=== PATIENT | female | born 1995 | race Asian ===

== ENCOUNTER 2016-03-15 00:06 | Emergency (ER) | payer OTHER ==
[~2016-03-15] VITALS: Ht 162.6 cm; Wt 47.6 kg
[2016-03-15 00:14] VITALS: Ht 162.6 cm; Wt 47.6 kg
--- NOTE | 2016-03-15 00:51 | EMERGENCY ROOM VISIT NOTE ---
History Report prepared by Jessie: Audrey Manriquez Under the Supervision of: Dr. Kodak Rodriguez M.D. First contact with patient: 00:41 Chief Complaint: FEVER Stated Complaint: FEVER History of Present Illness The patient is a 20 year old female who presents to the Emergency Room with complaints of a resolved fever that began around 1999 this evening. She currently rates her discomfort as a 2/10 in severity. The patient states that she took some medication prior to arrival, which alleviated her symptoms. She additionally notes dizziness, intermittent chest pain, headache, and burning with urination today. The patient denies any cough, sore throat, runny nose, ear pain, abdominal pain, back pain, hematuria, diarrhea, swelling in her lower extremities, or chance of . She denies any sick contacts. The patient denies getting a flu shot this year. Source of History: patient Onset: 1999 this evening Position: other (global) Symptom Intensity: 2/10 Quality: other (fever) Timing: resolved Associated Symptoms: + chest pain, + headache, + urinary symptoms (burning with urinatino), No abdominal pain, No back pain, No cough, No diarrhea, No sorethroat Note: Associated Symptoms: dizziness Review of Systems See HPI for pertinent positives & negatives. A total of 10 systems reviewed and were otherwise negative. Past Medical & Surgical Medical Problems: (1) No pertinent past medical history Surgical Problems: (1) No pertinent past surgical history Family History No pertinent family history Social History Smoking Status: Never Smoker Smokeless Tobacco Use: No Alcohol Use: none Marital Status: single Occupation Status: unemployed Allergies Coded Allergies: No Known Allergies (Unverified , 03/15/16) Physical Exam Vital Signs Date Time Temp Pulse Resp B/P Pulse Ox O2 Delivery O2 Flow Rate FiO2 03/15/16 01:45 36.7 74 18 101/59 96 03/15/16 00:14 37.3 101 22 104/61 95 Room Air Physical Exam GENERAL: Patient is well appearing and in no acute distress. HEENT: No acute trauma, normocephalic atraumatic, mucous membranes moist, no nasal congestion, no scleral icterus. NECK: No stridor, no adenopathy, no meningismus, trachea is midline. LUNGS: No dyspnea. Clear to auscultation and equal bilaterally. No wheeze, no rhonchi. HEART: Regular rate and rhythm. No murmurs, rubs, gallops appreciated. ABDOMEN: Soft, nontender, bowel sounds positive, no masses appreciated, no peritonitis. BACK: No midline tenderness, no CVA tenderness EXTREMITIES: Normal motion all extremities, no cyanosis, no edema. NEUROLOGIC: Alert and oriented, no acute motor or sensory deficits, no focal weakness, cranial nerves grossly intact. SKIN: No rash, no jaundice, no diaphoresis. Medical Decision & Procedures Laboratory Results Test 03/15/16 00:46 03/15/16 00:57 Influenza Type A Antigen Neg for Influ A (NEG) Influenza Type B Antigen Neg for Influ B (NEG) Urine Color YELLOW Urine Appearance CLEAR (CLEAR) Urine pH 6.5 (4.5-7.5) Urine Specific [place] 1.020 (1.000-1.030) Urine Protein NEG (NEG) Urine Glucose (UA) NEG (NEG) Urine Ketones TRACE (NEG) Urine Occult Blood NEG (NEG) Urine Nitrite NEG (NEG) Urine Bilirubin NEG (NEG) Urine Urobilinogen NEG (NEG) Urine Leukocyte Esterase TRACE (NEG) Urine WBC (Auto) 1-5 /hpf (0-5) Urine RBC (Auto) 0-4 /hpf (0-4) Urine Hyaline Casts (Auto) 1-5 /lpf (0-5) Urine Epithelial Cells (Auto) >30 /lpf (0-5) Urine Bacteria (Auto) 1+ (NEG) Urine Test NEG (NEG) Laboratory results as reviewed by me. ED Course 0041: The patient was evaluated in room C3. A complete history and physical exam was performed. 0140: I reevaluated the patient and she is resting comfortably. I discussed the exam findings with her and I discussed the treatment plan. She verbalized complete understanding and agreement. She is ready to go home. Medical Decision Differential: Viral, Pharyngitis, Cellulitis, Pneumonia, Influenza, Meningitis, Sepsis, Bacteremia, UTI/Pyelonephritis, Endocrine, Toxicologic, amongst other pathologies entertained. 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 Flu is negative. UA is clear (done due to single episode of urinary burning earlier). She is not septic. Lungs are clear. The patient is well hydrated, happy, breathing comfortably and in no distress. They are not septic and are stable at discharge. Impression Primary Impression: Fever Additional Impression: Upper respiratory infection Scribe Attestation The scribe's documentation has been prepared under my direction and personally reviewed by me in its entirety. I confirm that the note above accurately reflects all work, treatment, procedures, and medical decision making performed by me. Departure Information Dispostion Home / Self-Care Referrals No Doctor, Assigned (PCP) Forms HOME CARE DOCUMENTATION FORM, IMPORTANT VISIT INFORMATION Patient Instructions Fever - [facility], My [facility] Health Problem Qualifiers Primary Impression: Fever Encounter type: initial encounter Additional Impression: Upper respiratory infection URI type: unspecified URI Qualified Codes: J06.9 - Acute upper respiratory infection, unspecified
[2016-03-15 01:23] LABS: URINE APPEARANCE CLEAR (CLEAR); URINE BILIRUBIN NEG (NEG); URINE COLOR YELLOW; URINE EPITHELIAL CELL AUTO >30 /lpf (0-5); URINE NITRITE NEG (NEG); URINE PH 6.5 (4.5-7.5); UROBILINOGEN NEG (NEG); ZZUR CULT IF INDIC CLEAN CATCH YES
[2016-03-15 01:28] LABS: MANUAL MICROSCOPIC REQUIRED? NO; REVIEW REQ? NO
[2016-03-15 01:45] VITALS: BP 101/59; PULSE 74; TEMP 36.7; O2SAT 96
== END 2016-03-15 01:47 | disposition home or self-care (01) ==
LOC: C.EDB 00:07 → C.EDC 01:47
DX: R50.9 Fever, unspecified (principal); J06.9 Acute upper respiratory infection, unspecified